=== PATIENT | female | born 1945 | race Caucasian/White ===

== ENCOUNTER 2023-09-21 02:52 | Inpatient (IN) | payer OTHER ==
[~2023-09-21] VITALS: Ht 154.9 cm; Wt 79.5 kg
[2023-09-21] MEDS ORDERED: SODIUM CHLORIDE 0.9% 3,250 ML IV ONE (03:15)
[2023-09-21] MEDS ORDERED: 0.9% SODIUM CHLORIDE 10 ML SYRINGE IVP PRN (03:15)
[2023-09-21] MEDS ORDERED: NOREPINEPHRINE 8 MG/0.9 % NACL 250 ML IV PRN (03:45)
[2023-09-21 03:56] LABS: BASOPHILS % (AUTO) 0.4 % (0.0-2.0); EOSINOPHILS % (AUTO) 0 % (1.0-6.0); HEMATOCRIT 26.2 % (36-46); HEMOGLOBIN 8.1 g/dL (12.0-16.0); LYMPHOCYTES # (AUTO) 0.5 K/uL (1.0-4.8); LYMPHOCYTES % (AUTO) 2.6 % (22.0-44.0); MEAN CORPUSCULAR HEMOGLOBIN 28.3 pg (26.0-34.0); MEAN CORPUSCULAR VOLUME 92 fL (80-100); MONOCYTES # (AUTO) 0.6 K/uL (0.1-1.0); MONOCYTES % (AUTO) 3.2 % (2.0-9.0); NEUTROPHILS # (AUTO) 18.3 K/uL (1.8-7.7); PLATELET COUNT (AUTO) 214 K/uL (150-450); RED BLOOD CELL COUNT(AUTO) 2.87 MIL/uL (4.00-5.20); RED CELL DISTRIBUTION WIDTH 18.9 % (11.5-14.5); WHITE BLOOD COUNT (AUTO) 19.5 K/uL (4.5-11.0)
[2023-09-21 03:59] LABS: COVID AG,FIA SOURCE NASAL SWAB
[2023-09-21 04:01] LABS: APPEARANCE,URINE HAZY (CLEAR); BILIRUBIN,URINE NEGATIVE (NEGATIVE); COLOR,URINE LIGHT YELLOW (YELLOW); GLUCOSE, URINE (UA) NEGATIVE (NEGATIVE); KETONES,URINE NEGATIVE (NEGATIVE); LEUKOCYTE ESTERASE ,URINE SMALL (NEGATIVE); NEUTROPHILS % (AUTO) 93.8 % (40.0-70.0); NITRATE,URINE NEGATIVE (NEGATIVE); OCCULT BLOOD,URINE NEGATIVE (NEGATIVE); PH,URINE 5.5 (5.0-8.0); PROTEIN,URINE 30-70 mg/dL (NEGATIVE); SPECIFIC GRAVITIY, URINE 1.017 (1.003-1.030); UROBILINOGEN,URINE <=1.0 mg/dL (<=1.0)
[2023-09-21 04:07] LABS: ANION GAP 17 mmol/L (8-16); CALCIUM, TOTAL 7.9 mg/dL (8.8-10.5); CARBON DIOXIDE 14 mmol/L (22-29); CHLORIDE 104 mmol/L (98-107); CREATININE 6.86 mg/dL (0.60-1.30); GLOMERULAR FILTR. RATE CALC 6 mL/min (>60); GLUCOSE,RANDOM 99 mg/dL (70-110); POTASSIUM 4.9 mmol/L (3.5-5.1); SODIUM SERUM 135 mmol/L (136-145); UREA NITROGEN, BLOOD 82 mg/dL (7-18)
[2023-09-21 04:22] LABS: BACTERIA,URINE Moderate /HPF (None Seen); INFLUENZA TYPE A NEGATIVE FOR TYPE A (NEGATIVE); INFLUENZA TYPE B NEGATIVE FOR TYPE B (NEGATIVE); RBC,URINE None Seen /HPF (0-2); SARS-COV2 (COVID) ANTIGEN,FIA Negative (Negative); SQUAMOUS EPITHELIAL CELL,UR None Seen /LPF (None Seen)
[2023-09-21 04:23] LABS: ALANINE AMINOTRANSFERASE 15 U/L (12-78); ALBUMIN 2.2 g/dL (3.4-5.0); ALKALINE PHOSPHATASE 153 U/L (46-116); ASPARTATE AMINOTRANSFERASE 26 U/L (15-37); BILIRUBIN,TOTAL 0.5 mg/dL (0.1-1.0); TOTAL PROTEIN, SERUM 6.1 g/dL (6.4-8.2)
[2023-09-21 04:25] LABS: TROPONIN I-HIGH SENSITIVITY 50 ng/L (<51)
[2023-09-21 04:29] LABS: RBC MORPHOLOGY COMMENT ABNORMAL RBC MORPH
[2023-09-21 04:38] LABS: LACTIC ACID 3.2 mmol/L (0.4-2.0)
[2023-09-21] MEDS ORDERED: SODIUM CHLORIDE 0.9% 2,200 ML IV ONE (04:45)
[2023-09-21] MEDS ORDERED: PIPERACILLIN SODIUM/TAZOBACTAM 2.25 GM in DEXTROSE 5%-WATER 50 ML IV ONE (05:00)
[2023-09-21] MEDS ORDERED: ACETAMINOPHEN 325 MG TABLET PO PRN (08:15)
[2023-09-21] MEDS ORDERED: ONDANSETRON HCL 4 MG/2 ML VIAL IVP PRN (08:15)
[2023-09-21] MEDS ORDERED: DEXTROSE 50%-WATER 25 GM/50 ML SYRINGE IVP PRN (08:15)
[2023-09-21] MEDS: DOCUSATE SODIUM 100 MG CAPSULE PO SCH ×2 (08:50→20:36)
[2023-09-21] MEDS: FAMOTIDINE 20 MG TABLET PO SCH (08:50)
[2023-09-21 09:09] LABS: THYROID STIMULATING HORMONE 4.14 uIU/mL (0.36-3.74)
[2023-09-21] MEDS ORDERED: SODIUM BICARBONATE 75 MEQ in SODIUM CHLORIDE 0.45% 1,000 ML IV ONE (11:45)
[2023-09-21 12:00] VITALS: BP 100/33; PULSE 69; RESP 17; TEMP 98.2
[2023-09-21 12:50] VITALS: PULSE 69
[2023-09-21 13:07] LABS: ABG CARBOXYHEMOGLOBIN 0.3 % (0.0-1.5); ABG HCO3 13.8 mmol/L (22.0-26.0); ABG METHEMOGLOBIN 0.1 % (0.0-1.5); ABG OXYGEN SATURATION 97.6 % (95.0-98.0); ABG OXYHEMOGLOBIN 97.2 % (94.0-100.0); ABG PCO2 27 mmHg (35-45); ABG PH 7.268 (7.35-7.450); ABG TOTAL HEMOGLOBIN 9.4 G/dL (12.0-18.0); PO2, ARTERIAL BG 103.8 mmHg (75.0-83.0); SITE, BLOOD GAS LFT RADIAL; SOURCE, BLOOD GAS ARTERIAL; TEMPERATURE, FAHRENHEIT, BG 98.2 FAHREN (96.0-98.6)
[2023-09-21 13:08] LABS: ABG A-A DIFF O2 64.3 mmHg (10-20.0); O2 DEVICE,BLOOD GAS CANNULA (ROOM AIR)
[2023-09-21] MEDS: NOREPINEPHRINE 8 MG/0.9 % NACL 250 ML IV PRN ×2 (14:31→23:33)
[2023-09-21] MEDS ORDERED: PROP10DR26 OU (14:43)
[2023-09-21] MEDS ORDERED: DORZ10DR10 OU (14:43)
[2023-09-21] MEDS ORDERED: ASCO500 PO (14:43)
[2023-09-21] MEDS ORDERED: ATEN-72 PO (14:43)
[2023-09-21] MEDS ORDERED: METF-1211 PO (14:43)
[2023-09-21] MEDS ORDERED: OMEP20 PO (14:43)
[2023-09-21] MEDS ORDERED: XALA2.5OS OU (14:43)
[2023-09-21] MEDS ORDERED: LEVO25TA9 PO (14:43)
[2023-09-21] MEDS ORDERED: CETI-450 PO (14:43)
[2023-09-21] MEDS ORDERED: FURO20 PO (14:43)
[2023-09-21] MEDS ORDERED: LOSA-382 PO (14:43)
[2023-09-21] MEDS ORDERED: CLOT15CR29 TP (14:43)
[2023-09-21] MEDS ORDERED: MINO2.5 PO (14:43)
[2023-09-21] MEDS ORDERED: LEVO50 PO (14:43)
[2023-09-21] MEDS ORDERED: DABI75CA4 PO (14:43)
[2023-09-21] MEDS ORDERED: IRON1CAP13 PO (14:43)
[2023-09-21] MEDS ORDERED: BENZ-227 PO (14:43)
[2023-09-21] MEDS ORDERED: CYAN25006 SL (14:43)
[2023-09-21] MEDS: HEPARIN SODIUM,PORCINE 5,000 UNITS/ML VIAL SQ SCH (15:58)
[2023-09-21 16:00] VITALS: BP 105/37; PULSE 63; PULSE 71; RESP 18; TEMP 98.8
[2023-09-21 16:05] LABS: CALCIUM, TOTAL 8.2 mg/dL (8.8-10.5); CREATININE 5.75 mg/dL (0.60-1.30); MAGNESIUM 2.6 mg/dL (1.80-2.40); PHOSPHORUS 6.1 mg/dL (2.5-4.9)
[2023-09-21 16:06] LABS: CREATININE,URINE RANDOM 150.4 mg/dL (30.0-125.0)
[2023-09-21 16:22] LABS: LACTIC ACID 1.5 mmol/L (0.4-2.0)
[2023-09-21 17:10] LABS: GLUCOMETER DEV NAME(LOC) ICUN.5; GLUCOSE,POINT OF CARE 117 MG/DL (70-110)
[2023-09-21 19:36] LABS: GLUCOMETER DEV NAME(LOC) ICUN.5; GLUCOSE,POINT OF CARE 110 MG/DL (70-110)
[2023-09-21 20:00] VITALS: BP 100/38; PULSE 68; RESP 20; TEMP 97.5
[2023-09-21 21:10] LABS: BASOPHILS % (AUTO) 0.1 % (0.0-2.0); EOSINOPHILS % (AUTO) 0.1 % (1.0-6.0); HEMATOCRIT 27.3 % (36-46); HEMOGLOBIN 8.7 g/dL (12.0-16.0); LYMPHOCYTES # (AUTO) 0.8 K/uL (1.0-4.8); LYMPHOCYTES % (AUTO) 4.1 % (22.0-44.0); MEAN CORPUSCULAR HEMOGLOBIN 28.7 pg (26.0-34.0); MEAN CORPUSCULAR HGB CONC 31.9 G/dL (31.0-37.0); MEAN CORPUSCULAR VOLUME 90 fL (80-100); MONOCYTES # (AUTO) 0.6 K/uL (0.1-1.0); MONOCYTES % (AUTO) 3.3 % (2.0-9.0); NEUTROPHILS # (AUTO) 17.1 K/uL (1.8-7.7); PLATELET COUNT (AUTO) 267 K/uL (150-450); RED BLOOD CELL COUNT(AUTO) 3.02 MIL/uL (4.00-5.20); RED CELL DISTRIBUTION WIDTH 18.5 % (11.5-14.5); WHITE BLOOD COUNT (AUTO) 18.5 K/uL (4.5-11.0)
[2023-09-21 21:16] LABS: NEUTROPHILS % (AUTO) 92.4 % (40.0-70.0)
[2023-09-21 21:56] LABS: GLUCOMETER DEV NAME(LOC) ICUN.5; GLUCOSE,POINT OF CARE 131 MG/DL (70-110)
[2023-09-21] MEDS: CHLORHEXIDINE GLUCONATE 2% TOWELETTE [2'S/6'S] TP SCH (22:11)
[2023-09-22] VITALS: BP 112/49; PULSE 66; RESP 20; TEMP 97.5
[2023-09-22 04:00] VITALS: BP 110/35; PULSE 65; RESP 20; TEMP 97.8
[2023-09-22 06:39] LABS: BASOPHILS % (AUTO) 0.2 % (0.0-2.0); EOSINOPHILS % (AUTO) 0 % (1.0-6.0); HEMATOCRIT 24.4 % (36-46); HEMOGLOBIN 7.8 g/dL (12.0-16.0); LYMPHOCYTES # (AUTO) 0.7 K/uL (1.0-4.8); MEAN CORPUSCULAR HEMOGLOBIN 28.5 pg (26.0-34.0); MEAN CORPUSCULAR VOLUME 89 fL (80-100); MONOCYTES # (AUTO) 0.7 K/uL (0.1-1.0); MONOCYTES % (AUTO) 4.9 % (2.0-9.0); NEUTROPHILS # (AUTO) 12.3 K/uL (1.8-7.7); PLATELET COUNT (AUTO) 215 K/uL (150-450); RED BLOOD CELL COUNT(AUTO) 2.74 MIL/uL (4.00-5.20); RED CELL DISTRIBUTION WIDTH 18.4 % (11.5-14.5); WHITE BLOOD COUNT (AUTO) 13.7 K/uL (4.5-11.0)
[2023-09-22 06:50] LABS: NEUTROPHILS % (AUTO) 89.9 % (40.0-70.0)
[2023-09-22 07:04] LABS: CALCIUM, TOTAL 8.3 mg/dL (8.8-10.5); CREATININE 4.44 mg/dL (0.60-1.30); MAGNESIUM 2.2 mg/dL (1.80-2.40); PHOSPHORUS 5.3 mg/dL (2.5-4.9); POTASSIUM 4.1 mmol/L (3.5-5.1)
[2023-09-22 07:29] LABS: HEMOGLOBIN A1C 4.5 % (3.8-5.6)
[2023-09-22 07:46] LABS: % IRON SATURATION 7.4 % (22-44)
[2023-09-22 08:00] VITALS: BP 104/53; PULSE 70; RESP 20; TEMP 98
[2023-09-22] MEDS: FAMOTIDINE 20 MG TABLET PO SCH (09:11)
[2023-09-22] MEDS: HEPARIN SODIUM,PORCINE 5,000 UNITS/ML VIAL SQ SCH ×4 (09:11→23:54)
[2023-09-22] MEDS: DOCUSATE SODIUM 100 MG CAPSULE PO SCH ×2 (09:11→20:19)
[2023-09-22] MEDS: IRON SUCROSE COMPLEX 100 MG in SODIUM CHLORIDE 0.9% 100 ML IV SCH (09:12)
[2023-09-22] MEDS: NOREPINEPHRINE 8 MG/0.9 % NACL 250 ML IV PRN (09:28)
[2023-09-22] MEDS: PANTOPRAZOLE SODIUM 40 MG DR TABLET PO SCH ×2 (10:21→20:19)
[2023-09-22] MEDS ORDERED: PENTETATE DTPA TC99M/MCL ISOTOPE 1 EA INJ INJ ONE (11:10)
[2023-09-22] MEDS ORDERED: MAA ALBUMIN AGGREGATED TC99M/UD<10MCL ISOTOPE 1 EA INJ INJ ONE (11:35)
[2023-09-22 12:00] VITALS: BP 107/69; PULSE 73; RESP 19; TEMP 98.6
[2023-09-22 13:01] LABS: GLUCOMETER DEV NAME(LOC) ICUN.5; GLUCOSE,POINT OF CARE 109 MG/DL (70-110)
[2023-09-22 14:11] LABS: GLUCOSE,POINT OF CARE 124 MG/DL (70-110)
[2023-09-22 16:00] VITALS: BP 119/55; PULSE 74; RESP 23; TEMP 98.6
[2023-09-22 16:21] LABS: TROPONIN I-HIGH SENSITIVITY 127 ng/L (<51)
[2023-09-22] MEDS: SODIUM BICARBONATE 75 MEQ in SODIUM CHLORIDE 0.45% 1,000 ML IV SCH ×4 (16:42→23:52)
[2023-09-22] MEDS: INSULIN LISPRO 100 UNITS/ML SQ PRN (17:46)
[2023-09-22 17:51] LABS: GLUCOSE,POINT OF CARE 144 MG/DL (70-110)
[2023-09-22 20:00] VITALS: BP 117/60; PULSE 73; RESP 21; TEMP 99.4
[2023-09-22] MEDS: CHLORHEXIDINE GLUCONATE 2% TOWELETTE [2'S/6'S] TP SCH (23:00)
[2023-09-23] VITALS: BP 109/47; PULSE 77; RESP 21; TEMP 99.5
[2023-09-23] MEDS: NOREPINEPHRINE 8 MG/0.9 % NACL 250 ML IV PRN (01:50)
[2023-09-23 04:00] VITALS: BP 123/48; PULSE 79; RESP 17; TEMP 99.2
[2023-09-23 04:06] LABS: PARATHYROID HORMONE INTACT 64 pg/mL (15-65)
[2023-09-23 04:56] LABS: GLUCOMETER DEV NAME(LOC) ICUN.5; GLUCOSE,POINT OF CARE 98 MG/DL (70-110)
[2023-09-23 05:52] LABS: BASOPHILS % (AUTO) 0.1 % (0.0-2.0); EOSINOPHILS % (AUTO) 0.1 % (1.0-6.0); HEMATOCRIT 21.8 % (36-46); HEMOGLOBIN 7.1 g/dL (12.0-16.0); LYMPHOCYTES # (AUTO) 0.7 K/uL (1.0-4.8); LYMPHOCYTES % (AUTO) 7.6 % (22.0-44.0); MEAN CORPUSCULAR HEMOGLOBIN 28.9 pg (26.0-34.0); MEAN CORPUSCULAR HGB CONC 32.8 G/dL (31.0-37.0); MEAN CORPUSCULAR VOLUME 88 fL (80-100); MONOCYTES # (AUTO) 0.7 K/uL (0.1-1.0); MONOCYTES % (AUTO) 7.2 % (2.0-9.0); NEUTROPHILS # (AUTO) 7.9 K/uL (1.8-7.7); PLATELET COUNT (AUTO) 187 K/uL (150-450); RED BLOOD CELL COUNT(AUTO) 2.47 MIL/uL (4.00-5.20); RED CELL DISTRIBUTION WIDTH 18.8 % (11.5-14.5); WHITE BLOOD COUNT (AUTO) 9.3 K/uL (4.5-11.0)
[2023-09-23 06:06] LABS: CALCIUM, TOTAL 7.8 mg/dL (8.8-10.5); CREATININE 2.68 mg/dL (0.60-1.30); MAGNESIUM 1.9 mg/dL (1.80-2.40); PHOSPHORUS 3.4 mg/dL (2.5-4.9); POTASSIUM 3.5 mmol/L (3.5-5.1)
[2023-09-23] MEDS: LEVOTHYROXINE SODIUM 75 MCG TABLET PO SCH (06:36)
[2023-09-23 08:00] VITALS: BP 108/48; PULSE 73; RESP 16; TEMP 99.2
[2023-09-23] MEDS: DOCUSATE SODIUM 100 MG CAPSULE PO SCH ×2 (09:00→21:00)
[2023-09-23] MEDS: IRON SUCROSE COMPLEX 100 MG in SODIUM CHLORIDE 0.9% 100 ML IV SCH (09:06)
[2023-09-23] MEDS: PANTOPRAZOLE SODIUM 40 MG DR TABLET PO SCH ×2 (09:07→21:00)
[2023-09-23] MEDS: MIDODRINE HCL 5 MG TABLET PO SCH ×3 (09:25→21:00)
[2023-09-23 12:00] VITALS: BP 116/47; PULSE 80; RESP 23; TEMP 99.1
[2023-09-23] MEDS: SODIUM BICARBONATE 75 MEQ in SODIUM CHLORIDE 0.45% 1,000 ML IV SCH (12:28)
[2023-09-23 12:36] LABS: GLUCOSE,POINT OF CARE 116 MG/DL (70-110)
[2023-09-23 16:00] VITALS: BP 108/50; PULSE 82; RESP 21; TEMP 99.4
[2023-09-23 17:01] LABS: GLUCOMETER DEV NAME(LOC) ICUN.5; GLUCOSE,POINT OF CARE 96 MG/DL (70-110)
[2023-09-23 17:33] LABS: BASOPHILS % (AUTO) 0.2 % (0.0-2.0); EOSINOPHILS % (AUTO) 0.2 % (1.0-6.0); HEMATOCRIT 22.3 % (36-46); HEMOGLOBIN 7.1 g/dL (12.0-16.0); LYMPHOCYTES # (AUTO) 0.6 K/uL (1.0-4.8); MEAN CORPUSCULAR HGB CONC 31.9 G/dL (31.0-37.0); MEAN CORPUSCULAR VOLUME 88 fL (80-100); MONOCYTES # (AUTO) 0.6 K/uL (0.1-1.0); MONOCYTES % (AUTO) 8.9 % (2.0-9.0); NEUTROPHILS # (AUTO) 5.9 K/uL (1.8-7.7); NEUTROPHILS % (AUTO) 81.7 % (40.0-70.0); PLATELET COUNT (AUTO) 166 K/uL (150-450); RED BLOOD CELL COUNT(AUTO) 2.55 MIL/uL (4.00-5.20); RED CELL DISTRIBUTION WIDTH 19.2 % (11.5-14.5); WHITE BLOOD COUNT (AUTO) 7.2 K/uL (4.5-11.0)
[2023-09-23 18:55] LABS: GLUCOMETER DEV NAME(LOC) ICUN.5; GLUCOSE,POINT OF CARE 106 MG/DL (70-110)
[2023-09-23 20:00] VITALS: BP 119/75; PULSE 81; RESP 27; TEMP 100
[2023-09-23] MEDS: CHLORHEXIDINE GLUCONATE 2% TOWELETTE [2'S/6'S] TP SCH (22:31)
[2023-09-24] VITALS (13 sets, daily range): BP systolic 90–133; BP diastolic 40–72; PULSE 73–87; RESP 16–27; TEMP 99.2–100
[2023-09-24] MEDS: SODIUM BICARBONATE 75 MEQ in SODIUM CHLORIDE 0.45% 1,000 ML IV SCH (03:36)
[2023-09-24 06:01] LABS: GLUCOMETER DEV NAME(LOC) ICUN.5; GLUCOSE,POINT OF CARE 106 MG/DL (70-110)
[2023-09-24 06:32] LABS: CALCIUM, TOTAL 7.3 mg/dL (8.8-10.5); CREATININE 1.74 mg/dL (0.60-1.30); MAGNESIUM 1.7 mg/dL (1.80-2.40); PHOSPHORUS 2.6 mg/dL (2.5-4.9); POTASSIUM 3.1 mmol/L (3.5-5.1)
[2023-09-24 07:12] LABS: BASOPHILS % (AUTO) 0.1 % (0.0-2.0); EOSINOPHILS % (AUTO) 0.4 % (1.0-6.0); LYMPHOCYTES # (AUTO) 0.7 K/uL (1.0-4.8); LYMPHOCYTES % (AUTO) 11.6 % (22.0-44.0); MEAN CORPUSCULAR HEMOGLOBIN 28.6 pg (26.0-34.0); MEAN CORPUSCULAR HGB CONC 32.5 G/dL (31.0-37.0); MEAN CORPUSCULAR VOLUME 88 fL (80-100); MONOCYTES # (AUTO) 0.5 K/uL (0.1-1.0); MONOCYTES % (AUTO) 8.1 % (2.0-9.0); NEUTROPHILS # (AUTO) 5.1 K/uL (1.8-7.7); NEUTROPHILS % (AUTO) 79.8 % (40.0-70.0); PLATELET COUNT (AUTO) 152 K/uL (150-450); RED BLOOD CELL COUNT(AUTO) 2.14 MIL/uL (4.00-5.20); RED CELL DISTRIBUTION WIDTH 18.8 % (11.5-14.5); WHITE BLOOD COUNT (AUTO) 6.4 K/uL (4.5-11.0)
[2023-09-24 07:19] LABS: HEMATOCRIT 18.9 % (36-46); HEMOGLOBIN 6.1 g/dL (12.0-16.0)
[2023-09-24] MEDS: IRON SUCROSE COMPLEX 100 MG in SODIUM CHLORIDE 0.9% 100 ML IV SCH (08:18)
[2023-09-24] MEDS: DOCUSATE SODIUM 100 MG CAPSULE PO SCH ×2 (08:18→20:48)
[2023-09-24] MEDS: LEVOTHYROXINE SODIUM 75 MCG TABLET PO SCH (08:18)
[2023-09-24] MEDS: MIDODRINE HCL 5 MG TABLET PO SCH ×3 (08:18→20:48)
[2023-09-24] MEDS: PANTOPRAZOLE SODIUM 40 MG DR TABLET PO SCH (08:18)
[2023-09-24] MEDS ORDERED: MAGNESIUM SULFATE 1 GM in DEXTROSE 5%-WATER 50 ML IV ONE (09:00)
[2023-09-24] MEDS ORDERED: SODIUM CHLORIDE 0.9% 500 ML IV ONE (09:41)
[2023-09-24] MEDS: POTASSIUM CHL 10 MEQ/WATER 50 ML IV SCH ×4 (09:43→19:54)
[2023-09-24] MEDS ORDERED: PANTOPRAZOLE SODIUM 40 MG/VIAL IVP SCH (10:00)
[2023-09-24] MEDS ORDERED: SODIUM CHLORIDE 0.9% 250 ML IV ONE (10:50)
[2023-09-24 11:29] LABS: INR 1.5 (0.9-1.1); PROTHROMBIN TIME 15.5 SEC (9.4-11.6)
[2023-09-24 11:36] LABS: ALBUMIN 1.4 g/dL (3.4-5.0); BILIRUBIN,TOTAL 0.9 mg/dL (0.1-1.0); CALCIUM, TOTAL 7.7 mg/dL (8.8-10.5); CREATININE 1.67 mg/dL (0.60-1.30); POTASSIUM 3.3 mmol/L (3.5-5.1); TOTAL PROTEIN, SERUM 5.1 g/dL (6.4-8.2)
[2023-09-24] MEDS: PANTOPRAZOLE SODIUM 80 MG in SODIUM CHLORIDE 0.9% 100 ML IV SCH ×2 (12:22→20:48)
[2023-09-24] MEDS ORDERED: DABI110C PO (13:28)
[2023-09-24 16:38] LABS: BASOPHILS % (AUTO) 0.8 % (0.0-2.0); EOSINOPHILS % (AUTO) 0.4 % (1.0-6.0); HEMOGLOBIN 7.7 g/dL (12.0-16.0); LYMPHOCYTES # (AUTO) 0.5 K/uL (1.0-4.8); LYMPHOCYTES % (AUTO) 8.1 % (22.0-44.0); MEAN CORPUSCULAR HEMOGLOBIN 28.2 pg (26.0-34.0); MEAN CORPUSCULAR HGB CONC 32.2 G/dL (31.0-37.0); MEAN CORPUSCULAR VOLUME 88 fL (80-100); MONOCYTES # (AUTO) 0.6 K/uL (0.1-1.0); MONOCYTES % (AUTO) 8.9 % (2.0-9.0); NEUTROPHILS # (AUTO) 5.5 K/uL (1.8-7.7); NEUTROPHILS % (AUTO) 81.8 % (40.0-70.0); PLATELET COUNT (AUTO) 149 K/uL (150-450); RED BLOOD CELL COUNT(AUTO) 2.73 MIL/uL (4.00-5.20); RED CELL DISTRIBUTION WIDTH 17.8 % (11.5-14.5); WHITE BLOOD COUNT (AUTO) 6.7 K/uL (4.5-11.0)
[2023-09-24 16:48] LABS: CREATININE 1.48 mg/dL (0.60-1.30); POTASSIUM 3.3 mmol/L (3.5-5.1)
[2023-09-24 16:49] LABS: CALCIUM, TOTAL 7.1 mg/dL (8.8-10.5)
[2023-09-24 17:35] LABS: MAGNESIUM 1.9 mg/dL (1.80-2.40)
[2023-09-24 17:41] LABS: GLUCOMETER DEV NAME(LOC) ICUN.5; GLUCOSE,POINT OF CARE 75 MG/DL (70-110)
[2023-09-24 19:11] LABS: GLUCOMETER DEV NAME(LOC) ICUN.5; GLUCOSE,POINT OF CARE 82 MG/DL (70-110)
[2023-09-24] MEDS: CHLORHEXIDINE GLUCONATE 2% TOWELETTE [2'S/6'S] TP SCH (22:02)
[2023-09-24] MEDS: OCTREOTIDE ACETATE 500 MCG in SODIUM CHLORIDE 0.9% 97.5 ML IV SCH (22:02)
[2023-09-25] VITALS: BP 104/49; PULSE 72; RESP 15; TEMP 98.9
[2023-09-25 04:00] VITALS: BP 98/54; PULSE 67; RESP 15; TEMP 98.3
[2023-09-25 05:31] LABS: GLUCOSE,POINT OF CARE 90 MG/DL (70-110)
[2023-09-25] MEDS: LEVOTHYROXINE SODIUM 75 MCG TABLET PO SCH (05:51)
[2023-09-25] MEDS: OCTREOTIDE ACETATE 500 MCG in SODIUM CHLORIDE 0.9% 97.5 ML IV SCH (05:51)
[2023-09-25] MEDS: PEG 400/HYPROMELLOSE/GLYCERIN 15 ML OPHTHALMIC SOLUTION OU SCH ×4 (05:51→23:48)
[2023-09-25 06:06] LABS: GLUCOSE,POINT OF CARE 87 MG/DL (70-110)
[2023-09-25 06:23] LABS: BASOPHILS % (AUTO) 0.4 % (0.0-2.0); EOSINOPHILS % (AUTO) 1.1 % (1.0-6.0); HEMATOCRIT 24.6 % (36-46); HEMOGLOBIN 7.9 g/dL (12.0-16.0); LYMPHOCYTES # (AUTO) 0.7 K/uL (1.0-4.8); LYMPHOCYTES % (AUTO) 11.1 % (22.0-44.0); MEAN CORPUSCULAR HEMOGLOBIN 28.6 pg (26.0-34.0); MEAN CORPUSCULAR HGB CONC 32.1 G/dL (31.0-37.0); MEAN CORPUSCULAR VOLUME 89 fL (80-100); MONOCYTES # (AUTO) 0.5 K/uL (0.1-1.0); NEUTROPHILS % (AUTO) 79.4 % (40.0-70.0); PLATELET COUNT (AUTO) 166 K/uL (150-450); RED BLOOD CELL COUNT(AUTO) 2.76 MIL/uL (4.00-5.20); RED CELL DISTRIBUTION WIDTH 18.1 % (11.5-14.5); WHITE BLOOD COUNT (AUTO) 6.3 K/uL (4.5-11.0)
[2023-09-25 06:41] LABS: CALCIUM, TOTAL 7.5 mg/dL (8.8-10.5); CREATININE 1.43 mg/dL (0.60-1.30); MAGNESIUM 1.9 mg/dL (1.80-2.40); PHOSPHORUS 2.7 mg/dL (2.5-4.9); POTASSIUM 3.9 mmol/L (3.5-5.1)
[2023-09-25] MEDS: PANTOPRAZOLE SODIUM 80 MG in SODIUM CHLORIDE 0.9% 100 ML IV SCH (07:13)
[2023-09-25 08:00] VITALS: BP 151/66; PULSE 79; RESP 21; TEMP 98.8
[2023-09-25] MEDS: CefTRIAXone 1 GM/DEXTROSE 50 ML IV SCH (08:19)
[2023-09-25] MEDS: DOCUSATE SODIUM 100 MG CAPSULE PO SCH ×2 (09:00→20:28)
[2023-09-25] MEDS: MIDODRINE HCL 5 MG TABLET PO SCH ×3 (09:48→20:28)
[2023-09-25] MEDS: IRON SUCROSE COMPLEX 100 MG in SODIUM CHLORIDE 0.9% 100 ML IV SCH (09:48)
[2023-09-25 12:00] VITALS: BP 140/73; PULSE 73; RESP 21; TEMP 99.3
[2023-09-25] MEDS ORDERED: MIDAZOLAM HCL 5 MG/ML VIAL ONE (13:43)
[2023-09-25] MEDS ORDERED: FentaNYL CITRATE PF 100 MCG/2 ML VIAL ONE (13:43)
[2023-09-25] MEDS ORDERED: SODIUM CHLORIDE 0.9% 500 ML IV ONE (14:03)
[2023-09-25 16:00] VITALS: BP 120/56; PULSE 70; RESP 20; TEMP 99
[2023-09-25 17:41] LABS: GLUCOMETER DEV NAME(LOC) ICUN.5; GLUCOSE,POINT OF CARE 123 MG/DL (70-110)
[2023-09-25 17:41] LABS: GLUCOSE,POINT OF CARE 81 MG/DL (70-110)
[2023-09-25 20:00] VITALS: BP 134/65; PULSE 71; RESP 21; TEMP 99.4
[2023-09-25] MEDS ORDERED: MELATONIN 3 MG TABLET PO PRN (20:00)
[2023-09-25] MEDS: INSULIN LISPRO 100 UNITS/ML SQ PRN (21:12)
[2023-09-25] MEDS: CHLORHEXIDINE GLUCONATE 2% TOWELETTE [2'S/6'S] TP SCH (23:19)
[2023-09-26] VITALS: BP 144/72; PULSE 72; RESP 36; TEMP 99.1
[2023-09-26 02:20] VITALS: BP 118/61; PULSE 84; RESP 21; TEMP 97.5
[2023-09-26 04:00] VITALS: BP 143/71; PULSE 83; RESP 22; TEMP 98.3
[2023-09-26 04:06] LABS: COMPLEMENT C3 89 mg/dL (82-167); COMPLEMENT C4 34 mg/dL (12-38)
[2023-09-26 04:06] LABS: IGA (IFE) 285 mg/dL (64-422); IGM (IMMUNOFIXATION) 87 mg/dL (26-217)
[2023-09-26 05:47] LABS: GLUCOMETER DEV NAME(LOC) ICUN.5; GLUCOSE,POINT OF CARE 166 MG/DL (70-110)
[2023-09-26] MEDS: LEVOTHYROXINE SODIUM 75 MCG TABLET PO SCH (07:08)
[2023-09-26] MEDS: PEG 400/HYPROMELLOSE/GLYCERIN 15 ML OPHTHALMIC SOLUTION OU SCH ×3 (07:08→18:03)
[2023-09-26 07:32] LABS: BASOPHILS % (AUTO) 0.3 % (0.0-2.0); HEMOGLOBIN 8.2 g/dL (12.0-16.0); LYMPHOCYTES # (AUTO) 0.7 K/uL (1.0-4.8); LYMPHOCYTES % (AUTO) 10.5 % (22.0-44.0); MEAN CORPUSCULAR HEMOGLOBIN 29.2 pg (26.0-34.0); MEAN CORPUSCULAR HGB CONC 32.9 G/dL (31.0-37.0); MEAN CORPUSCULAR VOLUME 89 fL (80-100); MONOCYTES # (AUTO) 0.4 K/uL (0.1-1.0); MONOCYTES % (AUTO) 6.9 % (2.0-9.0); NEUTROPHILS # (AUTO) 5.2 K/uL (1.8-7.7); NEUTROPHILS % (AUTO) 79.3 % (40.0-70.0); PLATELET COUNT (AUTO) 200 K/uL (150-450); RED BLOOD CELL COUNT(AUTO) 2.82 MIL/uL (4.00-5.20); RED CELL DISTRIBUTION WIDTH 17.8 % (11.5-14.5); WHITE BLOOD COUNT (AUTO) 6.5 K/uL (4.5-11.0)
[2023-09-26 07:48] LABS: CALCIUM, TOTAL 7.8 mg/dL (8.8-10.5); CREATININE 1.4 mg/dL (0.60-1.30); MAGNESIUM 1.8 mg/dL (1.80-2.40); PHOSPHORUS 2.3 mg/dL (2.5-4.9); POTASSIUM 3.8 mmol/L (3.5-5.1)
[2023-09-26] MEDS ORDERED: SODIUM CHLORIDE 0.9% 250 ML IV ONE (08:14)
[2023-09-26] MEDS: DOCUSATE SODIUM 100 MG CAPSULE PO SCH (08:27)
[2023-09-26] MEDS: CefTRIAXone 1 GM/DEXTROSE 50 ML IV SCH (08:28)
[2023-09-26] MEDS ORDERED: SODIUM,POTASSIUM PHOSPHATES POWDER PACKET PO SCH (09:00)
[2023-09-26] MEDS ORDERED: PANTOPRAZOLE SODIUM 40 MG/VIAL IVP SCH (09:00)
[2023-09-26] MEDS: IRON SUCROSE COMPLEX 100 MG in SODIUM CHLORIDE 0.9% 100 ML IV SCH (09:19)
[2023-09-26 09:57] VITALS: BP 125/77; PULSE 106; RESP 20; TEMP 97.7
[2023-09-26 11:37] LABS: GLUCOMETER DEV NAME(LOC) 5N.1C; GLUCOSE,POINT OF CARE 103 MG/DL (70-110)
[2023-09-26 11:53] LABS: GLUCOMETER DEV NAME(LOC) 5N.1C; GLUCOSE,POINT OF CARE 117 MG/DL (70-110)
[2023-09-26 13:44] VITALS: BP 133/66; PULSE 75; RESP 19; TEMP 97.6
[2023-09-26 17:16] LABS: GLUCOMETER DEV NAME(LOC) 5S.2C; GLUCOSE,POINT OF CARE 116 MG/DL (70-110)
[2023-09-26] MEDS ORDERED: LATANOPROST 0.005% 2.5 ML OPHTHALMIC SOLUTION OU SCH (21:00)
[2023-09-26] MEDS ORDERED: DORZOLAMIDE/TIMOLOL 2-0.5% [22.3-6.8MG/ML] 10 ML OPHTHALMIC SOLUTION OU SCH (21:00)
[2023-09-27 07:06] LABS: ALBUMIN URINE (ELP) 13.8 %; ALPHA-1 URINE (ELP) 3.9 %; TOTAL PROTEIN URINE 70.3 mg/dL (Not Estab.)
== END 2023-09-26 20:35 | disposition short-term general hospital (02) | DRG 871 ==
LOC: EMS 02:54 → AHU 06:27 → ICU 11:00 → 5S 09-26 01:00
PROVIDERS: ADMIT Internal Medicine; ATTEND Internal Medicine
PROC: 30233N1 Transfusion of Nonautologous Red Blood Cells into Peripheral Vein, Percutaneous Approach (ICD-10-PCS; 2023-09-24)
PROC: 05HC33Z Insertion of Infusion Device into Left Basilic Vein, Percutaneous Approach (ICD-10-PCS; 2023-09-24)
PROC: B54NZZA Ultrasonography of Left Upper Extremity Veins, Guidance (ICD-10-PCS; 2023-09-24)
PROC: 0DJ08ZZ Inspection of Upper Intestinal Tract, Via Natural or Artificial Opening Endoscopic (ICD-10-PCS; principal; 2023-09-25 15:00)
DX: A41.9 Sepsis, unspecified organism (principal); G92.8 Other toxic encephalopathy; R57.0 Cardiogenic shock; E87.1 Hypo-osmolality and hyponatremia; N17.9 Acute kidney failure, unspecified; N39.0 Urinary tract infection, site not specified; E87.20 Acidosis, unspecified; K92.2 Gastrointestinal hemorrhage, unspecified; I13.0 Hypertensive heart and chronic kidney disease with heart failure and stage 1 through stage 4 chronic kidney disease, or unspecified chronic kidney disease; L03.116 Cellulitis of left lower limb; E66.01 Morbid (severe) obesity due to excess calories; D63.8 Anemia in other chronic diseases classified elsewhere; E03.9 Hypothyroidism, unspecified; E87.6 Hypokalemia; I48.91 Unspecified atrial fibrillation; I27.20 Pulmonary hypertension, unspecified; I50.810 Right heart failure, unspecified; R80.9 Proteinuria, unspecified; E83.39 Other disorders of phosphorus metabolism; Z20.822 Contact with and (suspected) exposure to COVID-19; N18.9 Chronic kidney disease, unspecified; E11.22 Type 2 diabetes mellitus with diabetic chronic kidney disease; K31.9 Disease of stomach and duodenum, unspecified; K44.9 Diaphragmatic hernia without obstruction or gangrene; I08.1 Rheumatic disorders of both mitral and tricuspid valves; B96.1 Klebsiella pneumoniae [K. pneumoniae] as the cause of diseases classified elsewhere; Z83.3 Family history of diabetes mellitus; Z82.49 Family history of ischemic heart disease and other diseases of the circulatory system; Z90.710 Acquired absence of both cervix and uterus; Z88.2 Allergy status to sulfonamides; Z68.33 Body mass index [BMI] 33.0-33.9, adult
CPT/HCPCS: 36245; 36569; 36600; 71045; 74176; 76700; 76770; 76937; 78582; 80048; 80053; 81001; 82271; 82570; 82728; 82784; 82805; 82962; 83036; 83540; 83550; 83605; 83735; 83880; 83970; 84100; 84145; 84156; 84166; 84300; 84439; 84443; 84484; 85025; 85610; 86160; 86334; 86850; 86900; 86901; 86923; 87040; 87081; 87086; 87186; 87804; 93005; 93306; 93970; 99291; A9539; A9540; C9113; J0696; J1644; J1756; J2250; J2354; J2543; J3010; J3475; J3480; J3490; J7040; J7050; J7060; P9016; Q9967; 36415-L1; 36415-TC